=== PATIENT | female | born 1945 | race Caucasian/White ===

== ENCOUNTER → 2016-12-23 | Outpatient (CLI) | payer OTHER, MEDICARE | LOC: FIMAGING 09:28 | PROVIDERS: ATTEND Physician Assistant | DX: Z13.820 Encounter for screening for osteoporosis (principal); M85.89 Other specified disorders of bone density and structure, multiple sites; Z82.62 Family history of osteoporosis ==

== ENCOUNTER → 2017-03-24 | Outpatient (CLI) | payer OTHER, MEDICARE | LOC: FIMAGING 10:29 | PROVIDERS: ATTEND Obstetrics & Gynecology Gynecology | DX: Z12.31 Encounter for screening mammogram for malignant neoplasm of breast (principal) ==

== ENCOUNTER → 2018-03-10 | Outpatient (CLI) | payer OTHER, MEDICARE | LOC: FIMAGING 08:53 | PROVIDERS: ATTEND Internal Medicine | DX: R10.13 Epigastric pain (principal) ==

== ENCOUNTER → 2018-03-29 | Outpatient (CLI) | payer OTHER, MEDICARE | LOC: FIMAGING 11:20 | PROVIDERS: ATTEND Obstetrics & Gynecology Gynecology | DX: Z12.31 Encounter for screening mammogram for malignant neoplasm of breast (principal) ==

== ENCOUNTER 2018-04-11 06:11 | Day surgery (SDC) | payer OTHER, MEDICARE ==
[2018-04-11] MEDS ORDERED: LIDOCAINE 1% 2 ML INJ ID PRN (06:24)
[2018-04-11] MEDS ORDERED: LR 1,000 ML IV ONE (06:24)
--- NOTE | 2018-04-11 07:43 | PDANEPAE ---
ANE History of Present Illness abnormal uterine bleeding ANE Past Medical History - Cardiovascular History Hx Hypertension: No Hx Arrhythmias: No Hx Chest Pain: No Hx Coronary Artery / Peripheral Vascular Disease: No Hx CHF / Valvular Disease: No Hx Palpitations: No - Pulmonary History Hx COPD: No Hx Asthma/Reactive Airway Disease: No Hx Recent Upper Respiratory Infection: No Hx Oxygen in Use at Home: No Hx Sleep Apnea: No Sleep Apnea Screening Result - Last Documented: Negative - Neurologic History Hx Cerebrovascular Accident: No Hx Seizures: No Hx Dementia: No Neurologic History Comment: hx of cavenous AVM excision - Endocrine History Hx Diabetes: No Hypothyroid: No Hyperthyroid: No Obesity: no - Renal History Hx Renal Disorders: No - Liver History Hx Hepatic Disorders: No - Neurological & Psychiatric Hx Hx Neurological and Psychiatric Disorders: No - Cancer History Hx Cancer: Yes Cancer History Comment: basal cell removed - Congenital Disorder History Hx Congenital Disorders: No - GI History GERD: no Hx Gastrointestinal Disorders: No - Other Health History Other Health History: wears glasses - Chronic Pain History Chronic Pain: No - Surgical History Prior Surgeries: brain surgery 10 yrs for cavenous AVM in [place]. left knee meniscus surgery 2010 ANE Review of Systems Review of systems is: negative Review of Systems: - Exercise capacity Exercise capacity: >=4 METS METS (RN): 4 METS ANE Patient History - Allergies Allergies/Adverse Reactions: No Known Allergies Allergy (Verified 04/06/18 15:00) - Home Medications Home medications: home medication list seen and reviewed Home Medications: Estrace Vaginal (*) 04/06/18 [Last Taken Unknown] Herbals/Supplements -Info Only 04/06/18 [Last Taken 04/06/18] - NPO status NPO Status: no food or drink >8 hours NPO Since - Liquids (Date): 04/10/18 NPO Since - Liquids (Time): 20:00 NPO Since - Solids (Date): 04/10/18 NPO Since - Solids (Time): 19:00 - Anes Hx Anes Hx: no prior problems - Smoking Hx Smoking Status: Never smoked - Family Anes Hx Family Anes Hx: none Family Hx Anesthesia Complications: none ANE Labs/Vital Signs - Vital Signs Height: 165.1 cm Weight: 61.235 kg ANE Physical Exam - Airway Neck exam: FROM Mallampati Score: Class 2 Mouth exam: normal dental/mouth exam - Pulmonary Pulmonary: no respiratory distress - Cardiovascular Cardiovascular: regular rate and rhythym - ASA Status ASA Status: II ANE Anesthesia Plan Anesthesia Plan: GA with mask
[2018-04-11] MEDS ORDERED: PROPOFOL/EMULSION 500 MG/50 ML BOTTLE IV ONE (07:51)
[2018-04-11] MEDS ORDERED: fentaNYL 100 MCG/2 ML INJ ONE (08:00)
--- NOTE | 2018-04-11 08:00 | PDHPUP ---
History & Physical Update H&P update statement: This history and physical update is based on an assessment of the patient which was completed after admission or registration (within 24 hours), but prior to the surgery/procedure. H&P update: H&P reviewed & patient examined, no change in patient's condition since H&P completed
[2018-04-11] MEDS ORDERED: LABETALOL HCL 5 MG/ML 20 ML MDV IVP PRN (08:28)
[2018-04-11] MEDS ORDERED: ONDANSETRON 4 MG/2 ML VIAL IVP PRN (08:28)
[2018-04-11] MEDS ORDERED: ACETAMINOPHEN 500 MG TAB PO PRN (08:28)
[2018-04-11] MEDS ORDERED: oxyCODONE IR 5 MG TAB PO PRN (08:28)
[2018-04-11] MEDS ORDERED: MEPERIDINE 25 MG/0.5 ML AMP IVP PRN (08:28)
[2018-04-11] MEDS ORDERED: METOCLOPRAMIDE 10 MG/2 ML VIAL IVP PRN (08:28)
[2018-04-11] MEDS ORDERED: HYDROmorphONE/DILAUDID 2 MG/ML INJ IVP PRN (08:28)
[2018-04-11] MEDS ORDERED: fentaNYL 100 MCG/2 ML INJ IVP PRN (08:28)
[2018-04-11] MEDS ORDERED: LR 500 ML IV PRN (08:28)
[2018-04-11] MEDS ORDERED: ALBUTEROL 3 ML DEYVIAL IH PRN (08:28)
[2018-04-11] MEDS ORDERED: PROMETHAZINE HCL 25 MG/ML INJ IVP PRN (08:28)
[2018-04-11] MEDS ORDERED: NALOXONE HCL 0.4 MG/ML INJ IVP PRN (08:28)
[2018-04-11] MEDS ORDERED: PHENYLEPHRINE HCL 100 MCG/ML SYR IVP PRN (08:28)
[2018-04-11] MEDS ORDERED: DEXAMETHASONE 4 MG/ML VIAL IVP PRN (08:28)
[2018-04-11] MEDS ORDERED: KETOROLAC 30 MG/1 ML SDV ONE (08:29)
--- NOTE | 2018-04-11 09:03 | POSTANESTH ---
Post Anesthetic Evaluation Cardiovascular Status: Normal, Stable Respiratory Status: Normal, Stable Level of Consciousness/Mental Status: Can Participate in Eval Pain Control: Adequate, Prn Tx Ordered Nausea/Vomiting Control: Adequate, Prn Tx Ordered Complications Possibly Related to Anesthesia: None Noted
--- NOTE | 2018-04-11 09:24 | POSTOPPROG ---
Post Op Note Date of Operation: 04/11/18 Surgeon: Sahara Penny Anesthesiologist: Dr. Torres Anesthesia: LMA Pre-op Diagnosis: PMB, endometrial polyps Post-op Diagnosis: same , possible fibroid Indication: postmenopasual bleeding Procedure: H/S polypectomy and myomectomy Findings: endomerial polyps and possible fibroid Inf/Abcess present in the surg proc area at time of surgery?: No EBL: Minimal Complications: none Specimen(s): endometrial tissue
[2018-04-11 10:01] VITALS: BP 127/70
--- NOTE | 2018-04-11 10:53 | GOP ---
[f rep st] OPERATIVE REPORT DATE OF OPERATION: 04/11/2018 SURGEON: Sahara Penny MD ANESTHESIA: General with LMA ANESTHESIOLOGIST: Dr. Jeramy Torres PREOPERATIVE DIAGNOSIS: 1. Postmenopausal bleeding. 2. Endometrial polyps versus fibroids. POSTOPERATIVE DIAGNOSIS: 1. Postmenopausal bleeding. 2. Endometrial polyps versus fibroids. PROCEDURE PERFORMED: Hysteroscopic polypectomy and possibly myomectomy. FINDINGS: There was a posterior wall endometrial polyp about 2 cm, and then at the end the procedure , it was noted that she had a lower uterine segment possibly fibroid versus thickened polyp on the po sterior wall of the lower uterine segment. Normal tubal ostia. Normal cervix. ESTIMATED BLOOD LOSS: Minimal. INDICATIONS: Patient is a 72-year-old who had an episode of bleeding in 2016, and ultrasound showed a thickened endometrial stripe of 1.2 cm. Endometrial biopsy was minimal tissue and negative for hyp erplasia or malignancy. She has done well until recently, has had 2 more episodes of bleeding, and u ltrasound sonohysterogram shows a submucosal growth of 2.2 cm and recommend hysteroscopic removal for therapeutic and diagnostic purposes. DESCRIPTION OF PROCEDURE: With informed consent signed, patient was taken the operating room, placed under general anesthesia, and placed in the low dorsal lithotomy position. Bladder previously empti ed. Tenaculum placed on the anterior lip of the cervix. Cervix dilated to 6 mm and hysteroscope vasile franck using normal saline as a filling medium. Resection of the first polyp done without complication, and then as I was getting ready to terminate the procedure, there was a second growth noted in the l ower uterine segment and this was removed as well. The tissue was thicker and denser, so I suspect i t was a fibroid. Once it was felt that the endometrium and endocervix were completely clean of growth, the hysteroscop e removed. Net fluid deficit was 200 cc. Patient placed in a supine position, awakened in the opera ting room, taken to the recovery room in stable condition, tolerated procedure well. COMPLICATIONS: None. /[id number]/MODL
== END 2018-04-11 09:58 | disposition home or self-care (01) ==
LOC: FSGY 06:11
PROVIDERS: ATTEND Obstetrics & Gynecology Gynecology
PROC: 0UDB8ZX Extraction of Endometrium, Via Natural or Artificial Opening Endoscopic, Diagnostic (ICD-10-PCS; principal; 2018-04-11 08:00)
DX: N84.0 Polyp of corpus uteri (principal); N95.0 Postmenopausal bleeding
CPT/HCPCS: 58558; C1782; J1885; J2704; J3010